=== PATIENT | male | born 1955 | race Caucasian/White ===

== ENCOUNTER → 2019-08-17 11:04 | Outpatient (CLI) | payer MEDICARE, OTHER, SELFPAY ==
[2019-08-17 11:57] LABS: Hematocrit 38.7 % (40-54); Hemoglobin 13.1 g/dL (13.0-16.5); Mean Corp Hgb Conc 33.9 g/dL (32-36); Mean Corpuscular Hgb 31.2 pg (27.0-32.0); Mean Corpuscular Volume 92.1 fL (80-94); Mean Platelet Vol. 8.9 fl (6.2-12.0); Platelet Count 371 K/mm3 (150-450); RBC Distribution Width CV 14.3 % (11.6-14.6); RBC Distribution Width SD 45.8 fl (35.1-43.9); White Blood Count 8.4 K/mm3 (4.4-11.0)
[2019-08-17 12:07] LABS: Anion Gap 5 (5-15); BUN 16 mg/dL (7-18); Calcium,Total 9.7 mg/dL (8.5-10.1); Chloride 103 mmol/L (98-107); Creatinine, Serum 0.89 mg/dL (0.70-1.30); EST Glomerular Filtration Rate 91 mL/min (>60); Est Glom Filt Rate - Afr Amer 110 mL/min (>60); Glucose 91 mg/dL (74-106); Potassium 4.4 mmol/L (3.5-5.1); Sodium Level 137 mmol/L (136-145)
== END ==
PROVIDERS: PCP Family Medicine; Referring Provider Physician Assistant; Visit Provider Physician Assistant
DX: Z01.818 Encounter for other preprocedural examination (principal)
CPT/HCPCS: 36415; 80048; 85027

== ENCOUNTER → 2022-07-08 | Outpatient (CLI) | payer MEDICARE, OTHER, SELFPAY ==
[2022-07-08 13:22] LABS: Free T3 4.2 pg/mL (2.18-3.98); T4 Free Direct 1.14 ng/dL (0.76-1.46); Thyroid Stim Hormone (TSH) < 0.01 uIU/mL (0.358-3.74)
[2022-07-10 07:08] LABS: Thyroid Stim Immunoglob 6.91 IU/L (0.00-0.55)
[2022-07-10 12:51] LABS: Thyroid Peroxidase AB 533 IU/mL (0-34)
== END | disposition home or self-care (01) ==
LOC: BIMLAB 09:57
PROVIDERS: PCP Physician Assistant; Referring Provider Internal Medicine Endocrinology, Diabetes & Metabolism; Visit Provider Internal Medicine Endocrinology, Diabetes & Metabolism
DX: E05.90 Thyrotoxicosis, unspecified without thyrotoxic crisis or storm (principal)
CPT/HCPCS: 36415; 84439; 84443; 84445; 84481; 86376

== ENCOUNTER → 2022-07-27 | Outpatient (CLI) | payer MEDICARE, OTHER, SELFPAY ==
[2022-07-27 16:19] LABS: Free T3 3.8 pg/mL (2.18-3.98); T4 Free Direct 1.18 ng/dL (0.76-1.46); Thyroid Stim Hormone (TSH) < 0.01 uIU/mL (0.358-3.74)
== END | disposition home or self-care (01) ==
LOC: BIMLAB 13:47
PROVIDERS: PCP Physician Assistant; Referring Provider Nurse Practitioner Family; Visit Provider Nurse Practitioner Family
DX: E05.90 Thyrotoxicosis, unspecified without thyrotoxic crisis or storm (principal)
CPT/HCPCS: 36415; 84439; 84443; 84481

== ENCOUNTER → 2022-09-01 | Outpatient (CLI) | payer MEDICARE, OTHER, SELFPAY ==
[2022-09-01 12:32] LABS: Free T3 2.8 pg/mL (2.18-3.98); T4 Free Direct 0.73 ng/dL (0.76-1.46); Thyroid Stim Hormone (TSH) 0.02 uIU/mL (0.358-3.74)
== END | disposition home or self-care (01) ==
LOC: BIMLAB 08:57
PROVIDERS: PCP Physician Assistant; Referring Provider Internal Medicine Endocrinology, Diabetes & Metabolism; Visit Provider Internal Medicine Endocrinology, Diabetes & Metabolism
DX: E05.90 Thyrotoxicosis, unspecified without thyrotoxic crisis or storm (principal)
CPT/HCPCS: 36415; 84439; 84443; 84481

== ENCOUNTER 2022-11-11 14:37 | Emergency (ER) | payer MEDICARE, OTHER, SELFPAY ==
[2022-11-11 14:37] VITALS: BP 162/108; PULSE 98; RESP 16; TEMP 36.8; O2SAT 98; BMI 25.9
--- NOTE | 2022-11-11 15:05 | EKG12_ITS ---
Test Reason : RHYTHM CHANGE Blood Pressure : / mmHG Vent. Rate : 082 BPM Atrial Rate : 286 BPM P-R Int : 000 ms QRS Dur : 088 ms QT Int : 372 ms P-R-T Axes : 000 042 -04 degrees QTc Int : 434 ms Atrial flutter with variable A-V block Nonspecific ST and T wave abnormality Abnormal ECG Confirmed by ZACH BUNDY, VANCE ([id number]), photography editor FRANKIE MENDOZA ([id number]) on 11/12/2022 9:11:18 AM Referred By: Confirmed By:VANCE SERRANO MD
--- NOTE | 2022-11-11 15:07 | EDS_ITS ---
HPI History of Present Illness Chief Complaint: Palpitations Detail of Chief Complaint: Atrial flutter Informant: patient Narrative Narrative: Patient presents secondary to new onset atrial flutter. Patient was scheduled to have knee surgery with Dr. Wan on November 20. He was at the hospital today for preop EKG which revealed atrial flutter. He saw his primary care provider this afternoon and was noted to be in atrial flutter with a ventricular rate of 113. He was sent back to the hospital for further evaluation. Patient denies any symptoms. [facility] Medical History Mixed hyperlipidemia Osteoarthritis Thyrotoxicosis Home Medications lovastatin 20 mg tablet 20 mg PO DAILY CHOLESTEROL 05/21/22 [History Last Taken 11/10/22] multivitamin (Daily Multi-Vitamin tablet) 1 tab PO DAILY 05/21/22 [History Last Taken 11/10/22] pyridoxine (vitamin B6) 100 mg tablet 100 mg PO DAILY 05/21/22 [History Last Taken 11/10/22] zinc acetate 50 mg (zinc) capsule 50 mg PO DAILY 05/21/22 [History Last Taken 11/10/22] methimazole 10 mg tablet 10 mg PO SUTUWETHSA 11/11/22 [History Last Taken 11/10/22] methimazole 10 mg tablet 20 mg PO MOFR 11/11/22 [History Last Taken 11/09/22] rivaroxaban 15 mg (42)-20 mg (9) tablets in a starter pack (Xarelto DVT-PE Treat ment 30-Day Starter) See Rx Instructions PO .COMPLEX #51 tabs 11/11/22 [Rx Last Taken Unknown] Allergy/AdvReac Type Severity Reaction Status Date / Time No Known Allergies Allergy Verified 11/11/22 14:39 Surgical History Hx of arthroscopy of shoulder Previous back surgery Social History Smoking Status: Never smoker Smokeless tobacco user: snuff alcohol intake: current alcohol intake frequency: holidays/special occasions only substance use type: does not use frequency: daily ROS ROS ED Constitutional Constitutional ED: Denies chills or fever(s) Eyes Eyes: Denies change in vision or discharge from eye(s) ENT ENT ED: Denies discharge from eye(s), rhinorrhea or sore throat Cardiovascular Cardiovascular: Denies chest pain or palpitations Respiratory/Chest Respiratory/Chest: Denies cough or dyspnea Gastrointestinal Gastrointestinal: Denies abdominal pain, diarrhea, nausea or vomiting Genitourinary Genitourinary ED: Denies dysuria Musculoskeletal Musculoskeletal: Denies back pain Integumentary Denies Abrasions or rash Neurologic Neurologic: Denies headache(s) or weakness Psychiatric Psychiatric: Denies anxiety or depression Allergic/Immunologic Allergic/Immunologic ED: Denies lip swelling or urticaria EXAM Physical Exam Const Vital Signs: 11/11/22 14:37 11/11/22 15:24 11/11/22 16:44 Temperature 98.2 F Temperature Source Temporal Pulse Rate 98 91 70 Respiratory Rate 16 18 21 H Blood Pressure 162/108 H 147/94 H 141/90 H Blood Pressure Mean 126 111 107 Pulse Ox 98 99 98 Oxygen Delivery Method Room Air Room Air Positive well nourished and well developed General Appearance ED: well developed HEENT Reports normocephalic and head/scalp atraumatic Eyes PERRL and EOMs intact bilaterally Neck supple Chest Wall inspection of chest normal and palpation of chest normal Resp normal respiratory effort and clear to auscultation bilaterally Cardio Rhythm: abnormal rhythm irregularly irregular GI normal to inspection, nondistended, normoactive bowel sounds Palpation: soft Extremity normal to inspection Neuro oriented x3 and no sensory deficits noted Sensorium / Orientation: alert Motor Exam: strength 5/5 throughout Psych mental status grossly normal Skin no rashes or lesions noted MDM MDM MDM Narrative Medical decision making narrative: Patient had outpatient labs this morning. CBC revealed normal white count 5.6 with a hemoglobin of 14.2. Platelet count is 199,000. Chemistry studies reveal normal renal function. Glucose is 114. Potassium normal at 4.5. His TSH was 4.04, free T3 is 2.6, free T4 direct is 0.74. 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 Repeat EKG obtained along with a chest x-ray. Coags obtained along with a troponin. Patient given a dose of Lopressor as well as a dose of Lovenox. Lab Data Attestation: I reviewed the patient's lab results. Labs: Laboratory Results - last 24 hr 11/11/22 11/11/22 15:43 15:43 PT 13.0 INR 1.0 APTT 27.8 Troponin I High Sens 5 Radiography Diagnostic Testing: Clinical Impression(s) from Imaging Studies Chest X-Ray 11/11/22 15:58 IMPRESSION: No radiographic evidence of acute cardiopulmonary disease. Electronically Signed: Bony Baca MD at 16:21 EDT , EKG Initial EKG: Attestation: I personally reviewed and interpreted this EKG as follows: Interpretation: Atrial Flutter (Atrial flutter 82 bpm. No acute ischem ia.) Treatment and Re-Evaluation :: Labs from earlier today are reviewed. I added a troponin which returns normal as well as coags which are unremarkable. After 5 mg of IV Lopressor patient's heart rate is in the 60s and blood pressures in the 140s over 80s. I spoke Dr. Mack, on-call for cardiology. At the time of our discussion his home med list stated that he was on atenolol 50 mg daily. After speaking with him he states that his doctor actually took him off of that just recently. Patient is to go back on atenolol at 50 mg a day and we will start him on Xarelto. He will follow-up with Dr. Mack in the office for further work-up and evaluation. Discharge Plan Triage Chief Complaint: Palpitations ED Provider: Janina Long Dx/Rx/DC Orders Clinical Impression: Atrial flutter Instructions: ED Atrial Flutter Prescriptions: New Xarelto DVT-PE Treat 30d Start 15 mg (42)- 20 mg (9) tablets,dose pack See Rx Instructions .ROUTE .COMPLEX Qty: 51 0RF Rx Instructions: take one-15 mg tablet twice daily for 21 days, then one-20 mg tablet once daily; must take with meal/food No Action lovastatin 20 mg tablet 20 mg PO DAILY zinc acetate 50 mg (zinc) capsule 50 mg PO DAILY pyridoxine (vitamin B6) 100 mg tablet 100 mg PO DAILY multivitamin [Daily Multi-Vitamin] Tablet 1 tab PO DAILY methimazole 10 mg tablet 20 mg PO MOFR Label Comments: TAKE 1 TABLET BY MOUTH DAILY. TAKE 2 TABLETS BY MOUTH ON WEDNESDAY, WEDNESDAY, AND WEDNESDAY FOR 30 DAYS methimazole 10 mg tablet 10 mg PO SUTUWETHSA Rx Instructions: 10 mg orally one daily, 2 daily M and_F; Primary Care Provider: Cesar Carr Referrals: Neo Mack MD [Med Staff - Active Staff] - 1-2 Weeks Cesar Carr PA [Primary Care Provider] - Activity Restrictions/Additional Instructions: As discussed, please go back on your atenolol daily. Please call Dr. Blas's office tomorrow for follow-up appointment. Disposition Disposition: Home, Self Care
[2022-11-11 15:24] VITALS: BP 147/94; PULSE 91; RESP 18; O2SAT 99
--- NOTE | 2022-11-11 15:58 | RAD_ITS ---
EXAM: XR CHEST, 1 VIEW CLINICAL INDICATION: palpitations TECHNIQUE: Frontal view of the chest. COMPARISON: No relevant prior studies available. FINDINGS: LUNGS AND PLEURAL SPACES: Unremarkable. No consolidation or edema. No pneumothorax. No effusion. HEART: Unremarkable. Cardiac silhouette not enlarged. MEDIASTINUM: Central airways and mediastinal contour are unremarkable. BONES/JOINTS: Unremarkable. SOFT TISSUES: Unremarkable. RAD/Chest 1 View (Portable) IMPRESSION: No radiographic evidence of acute cardiopulmonary disease. Electronically Signed: Bony Baca MD at 16:21 EDT ,
[2022-11-11] MEDS: Metoprolol Tartrate 5 MG/5 ML Vial IV (16:01)
[2022-11-11] MEDS: Enoxaparin 80 MG/0.8 ML Syringe SC (16:01)
[2022-11-11 16:20] LABS: Troponin-I HS 5 pg/mL (3.0-78.0)
[2022-11-11 16:21] LABS: Partial Thromboplast Time 27.8 Seconds (24.1-36.2)
[2022-11-11 16:44] VITALS: BP 141/90; PULSE 70; RESP 21; O2SAT 98
[2022-11-11 16:59] VITALS: BP 141/60; PULSE 84; RESP 16; O2SAT 98
== END 2022-11-11 17:00 | disposition home or self-care (01) ==
PROVIDERS: Emergency Provider Emergency Medicine; PCP Physician Assistant; Visit Provider Emergency Medicine
DX: Z01.818 Encounter for other preprocedural examination (principal); I48.92 Unspecified atrial flutter; E78.2 Mixed hyperlipidemia; F17.290 Nicotine dependence, other tobacco product, uncomplicated; E05.00 Thyrotoxicosis with diffuse goiter without thyrotoxic crisis or storm; Z01.810 Encounter for preprocedural cardiovascular examination
CPT/HCPCS: 36415; 71045; 80048; 84439; 84443; 84481; 84484; 85027; 85610; 85730; 93005; 96372; 96374; 99285; A4216

== ENCOUNTER → 2022-11-11 | Outpatient (CLI) | payer MEDICARE, OTHER, SELFPAY ==
--- NOTE | 2022-11-11 09:28 | EKG12_ITS ---
Test Reason : PREOP Blood Pressure : / mmHG Vent. Rate : 093 BPM Atrial Rate : 279 BPM P-R Int : 000 ms QRS Dur : 092 ms QT Int : 370 ms P-R-T Axes : 000 050 046 degrees QTc Int : 460 ms Atrial flutter with variable A-V block Nonspecific ST abnormality Abnormal ECG Confirmed by ZACH BUNDY, VANCE ([id number]), subeditor FRANKIE MENDOZA ([id number]) on 11/12/2022 9:03:50 AM Referred By: Matthieu Delcdi Confirmed By:VANCE SERRANO MD
[2022-11-11 10:33] LABS: Hematocrit 41.3 % (40-54); Hemoglobin 14.2 g/dL (13.0-16.5); Mean Corp Hgb Conc 34.4 g/dL (32-36); Mean Corpuscular Hgb 35.7 pg (27.0-32.0); Mean Corpuscular Volume 103.8 fL (80-94); Mean Platelet Vol. 9.6 fl (6.2-12.0); Platelet Count 199 K/mm3 (150-450); RBC Distribution Width CV 15.1 % (11.6-14.6); RBC Distribution Width SD 57.1 fl (35.1-43.9); Red Blood Count 3.98 M/mm3 (4.6-6.2); White Blood Count 5.6 K/mm3 (4.4-11.0)
[2022-11-11 10:50] LABS: Anion Gap 6 (5-15); BUN 15 mg/dL (7-18); BUN/Creat Ratio 16.4 RATIO (10-20); Calcium,Total 9.3 mg/dL (8.5-10.1); Chloride 104 mmol/L (98-107); Creatinine, Serum 0.91 mg/dL (0.70-1.30); EST Glomerular Filtration Rate 87 mL/min (>60); Est Glom Filt Rate - Afr Amer 106 mL/min (>60); Glucose 114 mg/dL (74-106); Potassium 4.5 mmol/L (3.5-5.1); Sodium Level 138 mmol/L (136-145)
[2022-11-11 11:05] LABS: Free T3 2.6 pg/mL (2.18-3.98); T4 Free Direct 0.74 ng/dL (0.76-1.46); Thyroid Stim Hormone (TSH) 4.04 uIU/mL (0.358-3.74)
== END | disposition home or self-care (01) ==
PROVIDERS: Internal Medicine Endocrinology, Diabetes & Metabolism; PCP Physician Assistant; Referring Provider Physician Assistant; Visit Provider Physician Assistant
DX: Z01.818 Encounter for other preprocedural examination (principal); E05.00 Thyrotoxicosis with diffuse goiter without thyrotoxic crisis or storm; Z01.810 Encounter for preprocedural cardiovascular examination
CPT/HCPCS: 36415; 80048; 84439; 84443; 84481; 85027; 93005

== ENCOUNTER → 2022-12-10 | Outpatient (CLI) | payer MEDICARE, OTHER, SELFPAY ==
--- NOTE | 2022-12-10 08:51 | ECHOD_ITS ---
Reason For Study: AFIB Procedure This was a 2D Doppler, Color Flow transthoracic echocardiogram. Exam performed in department. Left Ventricle Normal LV size. Left ventricular systolic function is normal. The estimated ejection fraction is 55 %. No regional wall motion abnormalities noted. Right Ventricle Normal RV size. Normal systolic function. Atria The left atrium is moderately enlarged. The right atrium is moderately enlarged. Mitral Valve Normal mitral valve. Tricuspid Valve Normal tricuspid valve. Mild (1+) tricuspid valve insufficiency. Pulmonary artery systolic pressure is 29 mmHg. Aortic Valve Normal aortic valve. Trisinus/trileaflet aortic valve. Pulmonic Valve Normal pulmonic valve. Great Vessels Normal aortic root. The pulmonary artery is normal size. Normal inferior vena cava. Pericardium/Pleural No pericardial effusion. MMode/2D Measurements & Calculations LVIDd: 4.7 cm IVSd: 0.80 cm Ao root diam: 3.7 cm LVIDs: 3.0 cm LVPWd: 1.0 cm RVDd: 4.5 cm FS: 36.2 % LAV(MOD-bp): 87.9 ml LVAd ap4: 30.1 cm2 SV(MOD-sp4): 53.8 ml LAV(MOD-bp) Indexed: 44.0 ml/m2 LVLd ap4: 7.7 cm LAV(MOD-sp2): 75.4 ml EDV(MOD-sp4): 95.6 ml LAV(MOD-sp4): 81.7 ml EDV(sp4-el): 100.5 ml LVAs ap4: 18.3 cm2 LVLs ap4: 6.6 cm ESV(MOD-sp4): 41.8 ml ESV(sp4-el): 43.1 ml EF(MOD-sp4): 56.3 % EF(sp4-el): 57.1 % SV(sp4-el): 57.4 ml LA A4 area: 26.7 cm2 LA dimension(2D): 4.1 cm RA A4 area: 25.8 cm2 Time Measurements MV dec time: 0.14 sec Doppler Measurements & Calculations MV E max juan manuel: 96.7 cm/sec Lat Peak E' Juan Manuel: 12.0 cm/sec Med Peak E' Juan Manuel: 8.5 cm/sec MV A max juan manuel: 60.3 cm/sec E/E' lat: 8.1 E/E' med: 11.4 MV E/A: 1.6 MV V2 max: 103.4 cm/sec Ao V2 max: 99.3 cm/sec MV max P.3 mmHg MV dec slope: 686.2 cm/sec2 Ao max P.9 mmHg MV V2 mean: 65.6 cm/sec Ao V2 mean: 69.1 cm/sec MV mean P.0 mmHg Ao mean P.2 mmHg MV V2 VTI: 30.9 cm Ao V2 VTI: 24.6 cm AV (velocity ratio): 0.77 LV V1 max: 78.2 cm/sec PA V2 max: 94.7 cm/sec TR max juan manuel: 248.1 cm/sec LV V1 max P.4 mmHg PA V2 mean: 64.2 cm/sec TR max P.6 mmHg LV V1 mean P.5 mmHg LV V1 mean: 56.9 cm/sec LV V1 VTI: 19.0 cm ECHO/Echo Complete Interpretation Summary Normal LV size. Left ventricular systolic function is normal. The estimated ejection fraction is 55 %. The left atrium is moderately enlarged. The right atrium is moderately enlarged. Pulmonary artery systolic pressure is 29 mmHg. Ordering Physician: Neo Mack Referring Physician: Neo Mack Performed By: Araceli Castro and Student
== END | disposition home or self-care (01) ==
LOC: CVS 08:50
PROVIDERS: PCP Physician Assistant; Referring Provider Internal Medicine Cardiovascular Disease; Visit Provider Internal Medicine Cardiovascular Disease
DX: Z01.810 Encounter for preprocedural cardiovascular examination (principal)
CPT/HCPCS: 93306

== ENCOUNTER → 2022-12-25 | Outpatient (CLI) | payer MEDICARE, OTHER, SELFPAY ==
[2022-12-25 12:56] LABS: Free T3 2.6 pg/mL (2.18-3.98); T4 Free Direct 0.81 ng/dL (0.76-1.46); Thyroid Stim Hormone (TSH) 4.22 uIU/mL (0.358-3.74)
== END | disposition home or self-care (01) ==
LOC: BIMLAB 09:45
PROVIDERS: PCP Physician Assistant; Referring Provider Internal Medicine Endocrinology, Diabetes & Metabolism; Visit Provider Internal Medicine Endocrinology, Diabetes & Metabolism
DX: E05.00 Thyrotoxicosis with diffuse goiter without thyrotoxic crisis or storm (principal)
CPT/HCPCS: 36415; 84439; 84443; 84481

== ENCOUNTER → 2022-12-29 | Outpatient (CLI) | payer MEDICARE, OTHER, SELFPAY ==
[2022-12-29 10:55] LABS: Mean Corp Hgb Conc 35.7 g/dL (32-36); Mean Corpuscular Hgb 36.5 pg (27.0-32.0); Mean Corpuscular Volume 102.2 fL (80-94); Mean Platelet Vol. 9.4 fl (6.2-12.0); Platelet Count 207 K/mm3 (150-450); RBC Distribution Width CV 14.9 % (11.6-14.6); RBC Distribution Width SD 54.3 fl (35.1-43.9); Red Blood Count 4.11 M/mm3 (4.6-6.2); White Blood Count 6.6 K/mm3 (4.4-11.0)
[2022-12-29 11:51] LABS: Anion Gap 4 (5-15); BUN 14 mg/dL (7-18); BUN/Creat Ratio 14.1 RATIO (10-20); Calcium,Total 9.2 mg/dL (8.5-10.1); Chloride 109 mmol/L (98-107); EST Glomerular Filtration Rate 79 mL/min (>60); Est Glom Filt Rate - Afr Amer 96 mL/min (>60); Glucose 115 mg/dL (74-106); Potassium 4.1 mmol/L (3.5-5.1); Sodium Level 139 mmol/L (136-145)
[2022-12-29 12:00] LABS: Free T3 2.6 pg/mL (2.18-3.98); T4 Free Direct 0.83 ng/dL (0.76-1.46); Thyroid Stim Hormone (TSH) 3.57 uIU/mL (0.358-3.74)
== END | disposition home or self-care (01) ==
LOC: LAB 10:16
PROVIDERS: Internal Medicine Endocrinology, Diabetes & Metabolism; PCP Physician Assistant; Referring Provider Physician Assistant Surgical; Visit Provider Physician Assistant Surgical
DX: Z01.818 Encounter for other preprocedural examination (principal); E05.00 Thyrotoxicosis with diffuse goiter without thyrotoxic crisis or storm; I10 Essential (primary) hypertension
CPT/HCPCS: 36415; 80048; 84439; 84443; 84481; 85027

== ENCOUNTER → 2023-05-25 | Outpatient (CLI) | payer MEDICARE, OTHER, SELFPAY ==
[2023-05-25 12:54] LABS: Free T3 2.3 pg/mL (2.18-3.98); T4 Free Direct 0.82 ng/dL (0.76-1.46); Thyroid Stim Hormone (TSH) 7.39 uIU/mL (0.358-3.74)
== END | disposition home or self-care (01) ==
LOC: BIMLAB 10:25
PROVIDERS: PCP Physician Assistant; Referring Provider Internal Medicine Endocrinology, Diabetes & Metabolism; Visit Provider Internal Medicine Endocrinology, Diabetes & Metabolism
DX: E05.00 Thyrotoxicosis with diffuse goiter without thyrotoxic crisis or storm (principal)
CPT/HCPCS: 36415; 84439; 84443; 84481

== ENCOUNTER → 2023-06-28 | Outpatient (CLI) | payer MEDICARE, OTHER, SELFPAY ==
--- OUTSIDE RECORDS SUMMARY | 2023-06-28 10:12 | XMS RPT_ITS | CCD ---
Author Name Unknown Address [address] [place] [address] Organization [facility] Care Team Providers Care Java Enterprise Architect Name Role Phone SHASHA SOTO MD Admitting Unavailable SHASHA SOTO MD Attending Unavailable SHASHA SOTO MD Primary Care Unavailable MONIE LEISE Consulting Unavailable PROVIDER, UNKNOWN Consulting Unavailable PROVIDER, UNKNOWN Consulting Unavailable PROVIDER, UNKNOWN Consulting Unavailable Problems Problem Classification Problem Date Documented Da te Episodic/Chronic Cardiac dysrhythmias (2 sources) Typical atrial flutter; Translations: [Typical atrial flutter] Onset: 03-08-2023 Chronic Results Test Name Value Interpretation Reference Range Facil ity Encounters Encounter Date Encounter Type Care Provider Facility Start: 03-08-2023 ambulatory Facility:[facility] Start: 06-11-2022 End: 06-11-2022 ambulatory SHASHA Vance [facility] Payers Date Payer Category Payer Medicare [id number] 2018 Unknown [id number] 1955 Unknown [id number] 1955 Unknown [id number] Summary Purpose Family History No Family History Records FoundNo Family History Records FoundNo Family History Records FoundNo Family History Records Found Advance Directives No Advanced Directives Records FoundNo Advanced Directives Records FoundNo Advanced Directives Records FoundNo Advanced Directives Records Found Additional Source Comments (unrecognized sect ion and content) No Status Records FoundNo Status Records FoundNo Status Records FoundNo Status Records Found INFORMATION SOURCE (unrecogn ized section and content) DATE CREATED AUTHOR AUTHOR'S ORGANIZ ATION 06/22/2022 [facility] DATE CREATED AUTHOR AUTHOR'S ORGANIZ ATION 03/15/2023 [facility] DATE CREATED AUTHOR AUTHOR'S ORGANIZ ATION 04/18/2023 [facility] FOR RECORDS PERTAINING TO PATIENTS WHO ARE OR HAVE BEEN ENROLLED IN A CHEMICAL DEPENDENCY/SUBSTANCEABUSE PROGRAM, SOME INFORMATION MAY BE OMITTED. This clinical summary was aggregated from multiple sources. Caution should be exercised in using it in the provision of clinical care. This summary normalizes information from multiple sources, and as a consequence, information in this document may materially change the coding, format and clinical context of patient data. In addition, data may be omitted in some cases. CLINICAL DECISIONS SHOULD BE BASED ON THE PRIMARY CLINICAL RECORDS. [employer] provides no warranty or guarantee of the accuracy or completeness of information in this document.
[2023-06-28 13:36] LABS: T4 Free Direct 0.92 ng/dL (0.76-1.46); Thyroid Stim Hormone (TSH) 3.93 uIU/mL (0.358-3.74)
== END | disposition home or self-care (01) ==
LOC: BIMLAB 09:48
PROVIDERS: PCP Physician Assistant; Referring Provider Internal Medicine Endocrinology, Diabetes & Metabolism; Visit Provider Internal Medicine Endocrinology, Diabetes & Metabolism
DX: E05.00 Thyrotoxicosis with diffuse goiter without thyrotoxic crisis or storm (principal)
CPT/HCPCS: 36415; 84439; 84443

== ENCOUNTER → 2023-11-25 | Outpatient (CLI) | payer MEDICARE, OTHER, SELFPAY | END | disposition home or self-care (01) | LOC: BIMLAB 09:41 | PROVIDERS: PCP Physician Assistant; Referring Provider Internal Medicine Endocrinology, Diabetes & Metabolism; Visit Provider Internal Medicine Endocrinology, Diabetes & Metabolism | DX: Z00.00 Encounter for general adult medical examination without abnormal findings (principal) ==

== ENCOUNTER → 2023-12-21 | Outpatient (CLI) | payer MEDICARE, OTHER, SELFPAY ==
[2023-12-21 12:53] LABS: Free T3 2.6 pg/mL (2.18-3.98); T4 Free Direct 1.35 ng/dL (0.76-1.46); Thyroid Stim Hormone (TSH) 1.62 uIU/mL (0.358-3.74)
== END | disposition home or self-care (01) ==
LOC: BIMLAB 09:29
PROVIDERS: PCP Physician Assistant; Referring Provider Nurse Practitioner Family; Visit Provider Nurse Practitioner Family
DX: E05.00 Thyrotoxicosis with diffuse goiter without thyrotoxic crisis or storm (principal)
CPT/HCPCS: 36415; 84439; 84443; 84481

== ENCOUNTER → 2024-02-11 | Outpatient (CLI) | payer MEDICARE, OTHER, SELFPAY ==
[2024-02-11 13:15] LABS: ALB/GLOB Ratio 0.8 RATIO (0.9-2.4); AST(SGOT) 18 U/L (15-37); Alanine Aminotransfer ALT/SGPT 18 U/L (16-61); Albumin, Serum 3.1 g/dL (3.2-5.0); Alkaline Phosphatase 93 U/L (45-117); Anion Gap 9 (5-15); BUN 10 mg/dL (7-18); BUN/Creat Ratio 12.7 RATIO (10-20); Calcium,Total 9.4 mg/dL (8.5-10.1); Chloride 100 mmol/L (98-107); Cholesterol 155 mg/dL (200); Creatinine, Serum 0.79 mg/dL (0.70-1.30); EST Glomerular Filtration Rate 103 mL/min (>60); Est Glom Filt Rate - Afr Amer 125 mL/min (>60); Glucose 104 mg/dL (74-106); High Density Lipoprotein 50 mg/dL; Potassium 4.5 mmol/L (3.5-5.1); Protein, Total 7.1 g/dL (6.4-8.2); Sodium Level 135 mmol/L (136-145); Triglycerides 121 mg/dL; Very Low Density Lipoprotein 24 mg/dL (5-40)
[2024-02-11 14:01] LABS: Urine Sodium 72 mmol/L (Not Establ.)
[2024-02-11 14:13] LABS: Osmolality, Serum 283 mOsm/KG (280-301); Osmolality, Urine 453 mOsm/KG
== END | disposition home or self-care (01) ==
LOC: BIMLAB 09:23
PROVIDERS: PCP Physician Assistant; Referring Provider Internal Medicine Endocrinology, Diabetes & Metabolism; Visit Provider Internal Medicine Endocrinology, Diabetes & Metabolism
DX: E05.90 Thyrotoxicosis, unspecified without thyrotoxic crisis or storm (principal); E78.2 Mixed hyperlipidemia; I10 Essential (primary) hypertension; E87.1 Hypo-osmolality and hyponatremia
CPT/HCPCS: 36415; 80053; 80061; 82533; 83930; 83935; 84300; 84443

== ENCOUNTER → 2024-02-15 | Outpatient (CLI) | payer MEDICARE, OTHER, SELFPAY | END | disposition home or self-care (01) | LOC: PSN 13:21 | PROVIDERS: PCP Physician Assistant; Referring Provider Nurse Practitioner Family; Visit Provider Nurse Practitioner Family | DX: I48.3 Typical atrial flutter (principal) | CPT/HCPCS: 93225; 93226 ==

== ENCOUNTER → 2024-06-13 | Outpatient (CLI) | payer MEDICARE, OTHER, SELFPAY ==
--- NOTE | 2024-06-13 12:19 | CT_ITS ---
INDICATION: ABD DISCOMFORT, ABD MASS, INRA ABD NEOPLASM SUSPECTED EXAMINATION: CT ABDOMEN WITH IV CONTRAST CT Abdomen W/ Contrast Injection TECHNIQUE: Helically acquired images were obtained of the abdomen following IV contrast. The protocol utilizes one or more of the following dose reduction techniques: automated exposure control, adjustment of mA and/or kV according to patient size,and/or use of iterative reconstruction technique. IV Contrast dosage and agent: Oral contrast: None. RADIATION DOSAGE (If Supplied By Facility): CTDIvol = ( 11.34 ) mGy, DLP = ( 754.62 ) mGycm COMPARISON: FINDINGS: LOWER CHEST: Lung bases are clear. No cardiomegaly or pericardial effusion. LIVER: Homogeneous. No focal mass. GALLBLADDER AND BILIARY TREE: No calcified gallstones. No gallbladder distension or wall edema. No intra- or extrahepatic biliary ductal dilation. PANCREAS: No focal cystic or solid mass. SPLEEN: Normal size without focal cystic or solid mass. ADRENAL GLANDS: No nodules. KIDNEYS AND URETERS: Normal renal size and position. No hydronephrosis. PERITONEUM: No ascites or free air. No other fluid collection. BOWEL: No evidence of acute appendicitis. No stomach or bowel distension. No focal inflammatory change.Colonic fecal retention. LYMPH NODES: No enlarged mesenteric or retroperitoneal lymph nodes. VESSELS: Aorta is non-dilated. ABDOMINAL WALL: No discrete abdominal wall hernia. BONES: No lytic or blastic abnormality. CT/Abdomen WITH IV Contrast IMPRESSION: Colonic fecal retention. Electronically Signed: Chago Roldan DO at 14:28 EST ,
[2024-06-13 12:56] LABS: CREATININE FINGERSTICK < 1.0 mg/dL (0.70-1.30); EGFR FINGERSTICK > 60.0000 mL/min (>60)
== END | disposition home or self-care (01) ==
LOC: CT 12:18
PROVIDERS: PCP Physician Assistant; Referring Provider Physician Assistant; Visit Provider Physician Assistant
DX: R10.84 Generalized abdominal pain (principal)
CPT/HCPCS: 74160; Q9967

== ENCOUNTER 2024-07-28 08:13 | Day surgery (SDC) | payer MEDICARE, OTHER, SELFPAY ==
--- NOTE | 2024-07-25 16:59 | PAT.ANESEVAL ---
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 When Was Last Pacemaker Check QUESTION #4 FULL TEXT: You/Your Family Experience fever (hyperthermia) with Anesthesia Last Oral Intake Last Oral intake: Last Oral Intake NPO since Meds taken in AM with sips of water? Meds patient instructed to take am of surgery PONV PONV - jet operator: PONV - jet operator Female No 07/25/24 16:02 HX of Motion Sickness No 07/25/24 16:02 HX of N/V After Surgery Yes 07/25/24 16:02 Non-Smoker No 07/25/24 16:02 Duration of Surgery greater No 07/25/24 16:02 than 60 minutes Number of Risk Factors 1 07/25/24 16:02 PONV Score Low Risk 07/25/24 16:02 Height & Weight Height & Weight: Anesthesia: Height & Weight Height 5 ft 10 in 07/05/24 09:37 Respiratory Assessment Respiratory Assessment - jet operator: Respiratory Tract Infection Hx - jet operator Hx Respiratory Tract Infection No 07/25/24 16:02 STOP Sleep Apnea STOP Sleep Apnea - jet operator: STOP Sleep Apnea - jet operator Hx Hypertension Yes: CONTROLLED WITH MEDS 07/25/24 16:02 Hx Sleep Apnea No 07/25/24 16:02 CPAP BIPAP Do you snore loudly (louder Yes 07/25/24 16:02 than talking or can be heard Do you often feel tired/ No 07/25/24 16:02 fatigued/ sleepy during daytime? Has anyone observed you stop No 07/25/24 16:02 breathing during sleep? STOP Results Positive 07/25/24 16:02 QUESTION #5 FULL TEXT : Do you snore loudly (louder than talking or can be heard through closed doors)? 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 Specify any problems Hx of Preganancy in last 3 N/A 07/25/24 16:02 Months Nurse Filling Out Transfusion [id number] 07/25/24 16:02 & Questions: Date: 07/25/24 07/25/24 16:02 Time: 16:07/25/24 16:02 Patient unable to answer at this time (ie. confused, unrespo /Reproduction History /Reproductive History - jet operator: /Reproductive Hx- jet operator Hx Now Gestational Age (in weeks): EDC: Hx Hx Para Hx Section SAB PFSH Medical History (Updated 07/25/24 @ 16:08 by Clark Santiago) Wears glasses Wears dentures History of echocardiogram Cardiology follow-up encounter Hyponatremia Peripheral neuropathy Essential hypertension Hyperthyroidism Atrial flutter Osteoarthritis Mixed hyperlipidemia Thyrotoxicosis Home Medications ?Medication ?Instructions ?Recorded ?Last Taken ?Type lovastatin 20 mg tablet 20 mg PO DAILY CHOLESTEROL 05/21/22 11/10/22 History multivitamin (Daily Multi-Vitamin 1 tab PO DAILY 05/21/22 11/10/22 History tablet) pyridoxine (vitamin B6) 100 mg 100 mg PO DAILY 05/21/22 11/10/22 History tablet zinc acetate 50 mg (zinc) capsule 50 mg PO DAILY 05/21/22 11/10/22 History metoprolol succinate 50 mg 50 mg PO QDAY #90 tabs 01/17/24 Unknown Rx tablet,extended release 24 hr rivaroxaban 20 mg tablet (Xarelto) 20 mg PO DAILY #90 tabs 05/10/24 07/24/24 Rx methimazole 5 mg tablet 5 mg PO MOTUWETHFRSA #90 tabs 06/23/24 Unknown Rx Allergy/AdvReac Type Severity Reaction Status Date / Time No Known Allergies Allergy Verified 07/25/24 16:00 Surgical History (Updated 07/25/24 @ 16:08 by Clark Santiago) History of hernia surgery History of radiofrequency ablation procedure for cardiac arrhythmia (12/06/23) History of knee surgery Previous back surgery Hx of arthroscopy of shoulder Social History Smoking Status: Never smoker Smokeless tobacco user: snuff alcohol intake: current alcohol intake frequency: holidays/special occasions only substance use type: does not use caffeine: Yes Type: coffee Number of servings: 3 frequency: daily Audit: Pertinent Findings Pertinent Findings EKG Perinent findings: January 17, 2024. Normal sinus rhythm Echo (EF%) pertinent findings: December 10, 2022. Ejection fraction 55%. PA systolic pressure is 29 mmHg. No aortic stenosis noted. Consult pertinent findings: January 17, 2024. Rebel GARZA. 1. Atrial flutter-ablation was done in [facility] 27 November 2023. Latest EKG shows normal sinus rhythm. Continue rate control with metoprolol. Anticoagulation with Xarelto. 2. Hypertension?borderline elevated today. Continue to monitor. Additional pertinent findings: Holter monitor. February 15, 2024. Average heart rate was 92 bpm and normal sinus rhythm. No atrial fibrillation or flutter noted. Diary noted 1 episode of restlessness which correlated with normal sinus rhythm. Recommendation Anesthesia Recommendation Anesthesia recommendation: OPTIMIZED for anesthesia
[2024-07-28] VITALS (7 sets, daily range): BP systolic 87–132; BP diastolic 54–76; PULSE 76–86; RESP 16; TEMP 36.1–37; O2SAT 98–99; BMI 23.5
--- NOTE | 2024-07-28 08:20 | PCM.PRE.AN2 ---
ASA Classification* ASA Classification ASA Classification: 2 Assessment & Plan Anesthesia* Anesthesia Assessment Anesthesia Assessment: Discussed sedation and/or anesthesia options, risks, benefits, and alternatives with patient/parents/legal guardian/POA. Questions invited. The patient/parents/legal guardian/POA seems to understand and agrees to proceed with anesthesia plan. Reviewed the physical assessment, medical history, allergy history and patient home medications list prior to surgery/procedure/anesthetic and documented any changes. Performed airway and anesthesia risk assessments. Anesthesia Type Anesthesia Type: MAC Anesthesia Focused Assessment* Airway Assessment Mouth opens: >3 cm Mallampati Score: II Focused Labs Anesthesia Preop lab: CBC WBC 6.6 K/mm3 (4.4-11.0) 12/29/22 10:12/29/22 RBC 4.11 M/mm3 (4.6-6.2) L 12/29/22 10:12/29/22 Hgb 15.0 g/dL (13.0-16.5) 12/29/22 10:12/29/22 Hct 42.0 % (40-54) 12/29/22 10:12/29/22 Plt Count 207 K/mm3 (150-450) 12/29/22 10:12/29/22 CHEMISTRY Potassium 4.5 mmol/L (3.5-5.1) 02/11/24 09:23 02/11/24 Sodium 135 mmol/L (136-145) L 02/11/24 09:23 02/11/24 BUN 10 mg/dL (7-18) 02/11/24 09:02/11/24 Creatinine 0.79 mg/dL (0.70-1.30) 02/11/24 09:02/11/24 Glucose 104 mg/dL (74-106) 02/11/24 09:02/11/24 TSH 2.980 uIU/mL (0.358-3.740) 02/11/24 09:02/11/24 COAG PT 13.0 SECONDS (11.7-14.9) 11/11/22 15:43 11/11/22 Pre-Assessment Diagnosis/Proposed Procedure Planned Operative Procedure(s): COLONOSCOPY, EGD Anesthesia History 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 When Was Last Pacemaker Check QUESTION #4 FULL TEXT: You/Your Family Experience fever (hyperthermia) with Anesthesia Last Oral Intake Last Oral intake: Last Oral Intake NPO since Meds taken in AM with sips of water? Meds patient instructed to take am of surgery PONV PONV - customer logistics manager: PONV - customer logistics manager Female No 07/25/24 16:02 HX of Motion Sickness No 07/25/24 16:02 HX of N/V After Surgery Yes 07/25/24 16:02 Non-Smoker No 07/25/24 16:02 Duration of Surgery greater No 07/25/24 16:02 than 60 minutes Number of Risk Factors 1 07/25/24 16:02 PONV Score Low Risk 07/25/24 16:02 Height & Weight Height & Weight: Anesthesia: Height & Weight Height 5 ft 10 in 07/05/24 09:37 Respiratory Assessment Respiratory Assessment - customer logistics manager: Respiratory Tract Infection Hx - customer logistics manager Hx Respiratory Tract Infection No 07/25/24 16:02 STOP Sleep Apnea STOP Sleep Apnea - customer logistics manager: STOP Sleep Apnea - customer logistics manager Hx Hypertension Yes: CONTROLLED WITH MEDS 07/25/24 16:02 Hx Sleep Apnea No 07/25/24 16:02 CPAP BIPAP Do you snore loudly (louder Yes 07/25/24 16:02 than talking or can be heard Do you often feel tired/ No 07/25/24 16:02 fatigued/ sleepy during daytime? Has anyone observed you stop No 07/25/24 16:02 breathing during sleep? STOP Results Positive 07/25/24 16:02 QUESTION #5 FULL TEXT : Do you snore loudly (louder than talking or can be heard through closed doors)? Tobacco Use History Tobacco Use History - customer logistics manager: Tobacco Use History - customer logistics manager Tobacco Use Smoking Status Never smoker 07/25/24 16:02 Hx Tobacco Use No 07/25/24 16:02 Years Smoking Packs Smoked per Day Smoking Cessation Date was within the last 15 years Hx Smoking Cessation Date Hx Smoking Cessation Counseling Hematologic Medial History Hematologic Hx - customer logistics manager: Hematologic Medical Hx - documentation liaison Hx of Blood Transfusion No 07/25/24 16:02 Hx of Transfusion in last 3 No 07/25/24 16:02 Months Date of Last Transfusion (if within last 3 months) Ever experience any problems No 07/25/24 16:02 with transfusion(s)? Specify any problems Hx of Preganancy in last 3 N/A 07/25/24 16:02 Months Nurse Filling Out Transfusion [email or web address] 07/25/24 16:02 & Questions: Date: 07/25/24 07/25/24 16:02 Time: 16:07/25/24 16:02 Patient unable to answer at this time (ie. confused, unrespo /Reproduction History /Reproductive History - customer logistics manager: /Reproductive Hx- customer logistics manager Hx Now Gestational Age (in weeks): EDC: Hx Hx Para [facility] Medical History Wears glasses Wears dentures History of echocardiogram Cardiology follow-up encounter Hyponatremia Peripheral neuropathy Essential hypertension Hyperthyroidism Atrial flutter Osteoarthritis Mixed hyperlipidemia Thyrotoxicosis Home Medications ?Medication ?Instructions ?Recorded ?Last Taken ?Type lovastatin 20 mg tablet 20 mg PO DAILY CHOLESTEROL 05/21/22 11/10/22 History multivitamin (Daily Multi-Vitamin 1 tab PO DAILY 05/21/22 11/10/22 History tablet) pyridoxine (vitamin B6) 100 mg 100 mg PO DAILY 05/21/22 11/10/22 History tablet zinc acetate 50 mg (zinc) capsule 50 mg PO DAILY 05/21/22 11/10/22 History metoprolol succinate 50 mg 50 mg PO QDAY #90 tabs 01/17/24 Unknown Rx tablet,extended release 24 hr rivaroxaban 20 mg tablet (Xarelto) 20 mg PO DAILY #90 tabs 05/10/24 07/24/24 Rx methimazole 5 mg tablet 5 mg PO MOTUWETHFRSA #90 tabs 06/23/24 Unknown Rx Allergy/AdvReac Type Severity Reaction Status Date / Time No Known Allergies Allergy Verified 07/25/24 16:00 Surgical History History of hernia surgery History of radiofrequency ablation procedure for cardiac arrhythmia (12/06/23) History of knee surgery Previous back surgery Hx of arthroscopy of shoulder Social History Smoking Status: Never smoker Smokeless tobacco user: snuff alcohol intake: current alcohol intake frequency: holidays/special occasions only substance use type: does not use caffeine: Yes Type: coffee Number of servings: 3 frequency: daily Review of Systems (Anesthesia) ROS Narrative System reviewed and no additional complaints, except as documented.
--- NOTE | 2024-07-28 09:05 | HP.PCM_ITS ---
History and Physical Date of Admission: 07/28/24 Intake Vital Signs 02/11/2408:31 06/27/2507:50 07/05/2508:37 Height 5 ft 10 in 5 ft 10 in 5 ft 10 in Weight: 169 lb BMI 24.2 BP 157/82 H Blood Pressure Location Rt brachial Position Sitting Respiration 18 Intake Visit Reasons: UNINTENTIONAL WEIGHT LOSS Chief Complaint: weight loss Rehabilitation Director Required: No Is patient in pain?: No Allergies No Known Allergies Allergy (Verified 07/05/24 09:38) Medications ?Medication ?Instructions ?Recorded ?Confirmed ?Type lovastatin 20 mg tablet 20 mg PO DAILY CHOLESTEROL 05/21/22 07/05/24 History multivitamin (Daily Multi-Vitamin 1 tab PO DAILY 05/21/22 07/05/24 History tablet) pyridoxine (vitamin B6) 100 mg 100 mg PO DAILY 05/21/22 07/05/24 History tablet zinc acetate 50 mg (zinc) capsule 50 mg PO DAILY 05/21/22 07/05/24 History metoprolol succinate 50 mg 50 mg PO QDAY #90 tabs 01/17/24 07/05/24 Rx tablet,extended release 24 hr rivaroxaban 20 mg tablet (Xarelto) 20 mg PO DAILY #90 tabs 05/10/24 07/05/24 Rx methimazole 5 mg tablet 5 mg PO MOTUWETHFRSA #90 tabs 06/23/24 07/05/24 Rx Have you fallen in the past year?: No PFSH Medical History Hyponatremia Peripheral neuropathy Essential hypertension Hyperthyroidism Atrial flutter Osteoarthritis Mixed hyperlipidemia Thyrotoxicosis Surgical History History of radiofrequency ablation procedure for cardiac arrhythmia (12/06/23) History of knee surgery Previous back surgery Hx of arthroscopy of shoulder Social History Smoking Status: Never smoker Smokeless tobacco user: snuff alcohol intake: current alcohol intake frequency: holidays/special occasions only substance use type: does not use caffeine: Yes Type: coffee Number of servings: 3 frequency: daily HPI HPI HPI: Patient is a 69-year-old male with unintentional weight loss. He reports that since summer he has lost 20 to 30 pounds. He was also dealing with insomnia at the time and says he was not eating well. The patient does describe some mild abdominal pain under his ribs that has gone away. He is not noting any blood in his stool. He has never had a colonoscopy. ROS General General: Yes weight change; No appetite, fatigue, colon cancer, breast cancer or weakness HEENT HEENT: No difficulty swallowing, eye injury, eye surgery, swollen glands or hoarseness Endo Endocrine: Yes thyroid disease; No diabetes mellitus, thyroid cancer, Hair loss, heat intolerance or cold intolerance Skin Skin: No rash or changing moles Breast Breast: No left breast lump, right breast lump, nipple discharge, breast pain, abnormal mammogram, abnormal US or breast enlargement Musc Musculoskeletal: Yes back problems and arthritis; No rheumatoid arthritis, gout or joint pain Cardio Cardiovascular: Yes heart disease; No murmur, pacemaker, atrial fibrillation, high blood pressure, heart attack, heart stent, palpitations, shortness of breat with exertion or chest pain Psych Psychiatric: No depression, anxiety or hearing voices Resp Respiratory: No shortness of breath, No sleep apnea, No cough, No COPD, No asthma, No emphysema and No wheezing Gastro Gastrointestinal: No abdominal pain, No nausea or vomiting, No diarrhea, No constipation, No blood in stool, No acid reflux, No hemorrhoids, No ulcers, No gallbladder problem and No black,tarry stools Kapil Hematologic: Yes blood thinners, No blood disorders, No bleeding, No anemia and No blood clots Neuro Neurologic: No system reviewed and no additional complaints, except as documented, No as per HPI, No abnormal gait, No abnormal hearing, No abnormal movements, No abnormal speech, No behavioral changes, No burning sensations, No confusion, No convulsions, No disequilibrium, No dizziness, No localized weakness, No frequent falls, No headache(s), No lack of coordination, No loss of vision, No memory loss, No numbness, No other visual disturbances, No radicular pain, No restless legs, No sensory deficit, No syncope, No tingling, No tremor(s), No weakness and No other Assessment and Plan Assessment and Plan (1) Weight loss, unintentional: Status: Acute Plan: Patient is having unintentional weight loss since November. I did offer him an EGD and colonoscopy to evaluate the GI tract. Patient had a CT scan which was normal except for constipation. He has never had a colonoscopy or an EGD. He denies blood in the stool. I explained endoscopy in detail to the patient. I explained the risks including but not limited to stroke or heart attack with anesthesia, perforation of the GI tract, bleeding, infection. I explained that any of these could necessitate further emergency surgery. The patient understands and all questions were answered sufficiently. The patient wishes to proceed with procedure. Tc Judge MD Pager: [facility] [address] [place] [address], [address] [place] [address] Office: I have examined the patient and the H&P has been reviewed. There are no clinical changes since date of exam.
--- NOTE | 2024-07-28 09:31 | POSTOPAN2_ITS ---
Anesthesia Postop Eval I Sum Postop Eval Completion status Anesthesia document: Postop Eval 1 completed: Yes Anesthesia Postop Eval I Summary Anesthesia Postop Eval I Summary: Anesthesia Postop Eval I: Assessment Summary Airway patent Yes 07/28/24 09:31 CELLOPHANE CASTING MACHINE REPAIRER.MDOT Spontaneous unlabored Yes 07/28/24 09:31 CELLOPHANE CASTING MACHINE REPAIRER.OT respirations Mental status Awake,Calm 07/28/24 09:31 CELLOPHANE CASTING MACHINE REPAIRER.MDOT nausea No 07/28/24 09:31 CELLOPHANE CASTING MACHINE REPAIRER.MDOT Vomiting No 07/28/24 09:31 CELLOPHANE CASTING MACHINE REPAIRER.MDOT Anesthesia Postop Eval I: Fluid Summary Crystalloid volume administer 10 07/28/24 09:31 CELLOPHANE CASTING MACHINE REPAIRER.MDOT (ml) Colloids volume administered ( ml) Blood Product volume administered (ml) Total IV fluid infused 10 07/28/24 09:31 CELLOPHANE CASTING MACHINE REPAIRER.OT Anesthesia Postop Eval I: Summary Notes Anesthesia Complication No 07/28/24 09:31 CELLOPHANE CASTING MACHINE REPAIRER.OT Anesthesia Complication Comment: Post-operative progress note Anesthesia: Postop Eval II Evaluation Mental status: Awake and Calm Pain Level: 0 nausea: No Vomiting: No Complications Anesthesia Complication: No
--- NOTE | 2024-07-28 09:31 | PCM.POST.ANE ---
Anesthesia: Postop Eval I Current Vital Signs Temperature: 97 F Pulse Rate: 83 Blood Pressure: 87/54 Respiratory Rate: 16 Pulse Ox: 99 Oxygen Delivery Method: Room Air Assessment Airway patent: Yes Spontaneous unlabored respirations: Yes Mental status: Awake and Calm nausea: No Vomiting: No Anesthesia Complication: No Fluid Hydration Crystalloid volume administer (ml): 10 Total IV fluid infused: 10 Progress Note Anesthesia document: Postop Eval 1 completed: Yes
--- NOTE | 2024-07-28 09:31 | PCM.POSTANE2 ---
Anesthesia Postop Eval I Sum Postop Eval Completion status Anesthesia document: Postop Eval 1 completed: Yes Anesthesia Postop Eval I Summary Anesthesia Postop Eval I Summary: Anesthesia Postop Eval I: Assessment Summary Airway patent Yes 07/28/24 09:31 [email or web address] Spontaneous unlabored Yes 07/28/24 09:31 QUOTATION [email or web address].OT respirations Mental status Awake,Calm 07/28/24 09:31 QUOTATION [email or web address].MDOT nausea No 07/28/24 09:31 QUOTATION [email or web address].MDOT Vomiting No 07/28/24 09:31 QUOTATION [email or web address].MDOT Anesthesia Postop Eval I: Fluid Summary Crystalloid volume administer 10 07/28/24 09:31 QUOTATION CLERK.MDOT (ml) Colloids volume administered ( ml) Blood Product volume administered (ml) Total IV fluid infused 10 07/28/24 09:31 QUOTATION [email or web address].OT Anesthesia Postop Eval I: Summary Notes Anesthesia Complication No 07/28/24 09:31 QUOTATION CLERK.OT Anesthesia Complication Comment: Post-operative progress note Anesthesia: Postop Eval II Evaluation Mental status: Awake and Calm Pain Level: 0 nausea: No Vomiting: No Complications Anesthesia Complication: No
--- NOTE | 2024-07-28 09:33 | OP.EGD_ITS ---
Patient Name: Maykel De Anda Procedure Date: 07/28/2024 9:06 AM Date of : 1955 Age: 69 Procedure: Upper GI endoscopy Indications: Weight loss Providers: Tc Judge MD Referring MD: Young Pérez Medicines: Propofol per Anesthesia Patient Profile: This is a 69 year old male. Refer to note in patient chart for documentation of history and physical. Complications: No immediate complications. Procedure: Pre-Anesthesia Assessment: - Prior to the procedure, a History and Physical was performed, and patient medications and allergies were reviewed. The patient's tolerance of previous anesthesia was also reviewed. The risks and benefits of the procedure and the sedation options and risks were discussed with the patient. All questions were answered, and informed consent was obtained. Prior Anticoagulants: The patient has taken no anticoagulant or antiplatelet agents. After reviewing the risks and benefits, the patient was deemed in satisfactory condition to undergo the procedure. After obtaining informed consent, the endoscope was passed under direct vision. Throughout the procedure, the patient's blood pressure, pulse, and oxygen saturations were monitored continuously. The pediatric colonoscope was introduced through the mouth, and advanced to the second part of duodenum. The upper GI endoscopy was accomplished without difficulty. The patient tolerated the procedure well. Scope In: 9:17:52 AM Scope Out: 9:20:28 AM Total Procedure Duration Time 0 hours 2 minutes 36 seconds Findings: The esophagus was normal. The stomach was normal. The examined duodenum was normal. Impression: - Normal esophagus. - Normal stomach. - Normal examined duodenum. - No specimens collected. Recommendation: - Discharge patient to home. - Resume previous diet. - Continue present medications. Procedure Code(s): --- Professional --- 63214, Esophagogastroduodenoscopy, flexible, transoral; diagnostic, including collection of specimen(s) by brushing or washing, when performed (separate procedure) Diagnosis Code(s): --- Professional --- R63.4, Abnormal weight loss CPT copyright 2021 [employer]. All rights reserved. The codes documented in this report are preliminary and upon bran mixer review may be revised to meet current compliance requirements. Tc Judge MD 07/28/2024 9:33:06 AM This report has been signed electronically. Number of Addenda: 0 Note Initiated On: 07/28/2024 9:06 AM
--- NOTE | 2024-07-28 09:33 | OP.CCLET_ITS ---
07/28/2024 Young Pérez Re : Upper GI endoscopy procedure for Maykel De Anda Dear Lilly This procedure was performed on Sunday, July 28, 2024. My impressions and recommendations are as follows: Impressions : - Normal esophagus. - Normal stomach. - Normal examined duodenum. - No specimens collected. Recommendations : - Discharge patient to home. - Resume previous diet. - Continue present medications. My findings are described in the full procedure note, which is enclosed. If I can be of further assistance, please feel free to contact me at Doctor phone number(s): , Work: . Sincerely, Tc Judge MD 07/28/2024 9:33:06 AM This report has been signed electronically.
--- NOTE | 2024-07-28 09:35 | OP.COLON_ITS ---
Patient Name: Maykel De Anda Procedure Date: 07/28/2024 9:20 AM Date of : 1955 Age: 69 Procedure: Colonoscopy Indications: Weight loss Providers: Tc Judge MD Referring MD: Young Pérez Medicines: Propofol per Anesthesia Patient Profile: This is a 69 year old male. Refer to note in patient chart for documentation of history and physical. Last Colonoscopy: 10 years ago. Complications: No immediate complications. Procedure: Pre-Anesthesia Assessment: - Prior to the procedure, a History and Physical was performed, and patient medications and allergies were reviewed. The patient's tolerance of previous anesthesia was also reviewed. The risks and benefits of the procedure and the sedation options and risks were discussed with the patient. All questions were answered, and informed consent was obtained. Prior Anticoagulants: The patient has taken no anticoagulant or antiplatelet agents. After reviewing the risks and benefits, the patient was deemed in satisfactory condition to undergo the procedure. - Prior to the procedure, a History and Physical was performed, and patient medications and allergies were reviewed. The patient's tolerance of previous anesthesia was also reviewed. The risks and benefits of the procedure and the sedation options and risks were discussed with the patient. All questions were answered, and informed consent was obtained. Prior Anticoagulants: The patient has taken no anticoagulant or antiplatelet agents. After reviewing the risks and benefits, the patient was deemed in satisfactory condition to undergo the procedure. After I obtained informed consent, the scope was passed under direct vision. Throughout the procedure, the patient's blood pressure, pulse, and oxygen saturations were monitored continuously. The pediatric colonoscope was introduced through the anus and advanced to the cecum, identified by appendiceal orifice and ileocecal valve. The colonoscopy was performed without difficulty. The patient tolerated the procedure well. The quality of the bowel preparation was good. The ileocecal valve, appendiceal orifice, and rectum were photographed. Scope In: 9:21:46 AM Scope Withdrawal Time 0 hours 6 minutes 9 seconds Scope Out: 9:31:51 AM Total Procedure Duration Time 0 hours 10 minutes 5 seconds Findings: The entire examined colon appeared normal on direct and retroflexion views. Impression: - The entire examined colon is normal on direct and retroflexion views. - No specimens collected. Recommendation: - Discharge patient to home. - Resume previous diet. - Continue present medications. - Repeat colonoscopy is not recommended due to current age (66 years or older) for screening purposes. Procedure Code(s): --- Professional --- 60826, Colonoscopy, flexible; diagnostic, including collection of specimen(s) by brushing or washing, when performed (separate procedure) Diagnosis Code(s): --- Professional --- R63.4, Abnormal weight loss CPT copyright 2021 [employer]. All rights reserved. The codes documented in this report are preliminary and upon gold marker review may be revised to meet current compliance requirements. Tc Judge MD 07/28/2024 9:34:54 AM This report has been signed electronically. Number of Addenda: 0 Note Initiated On: 07/28/2024 9:20 AM
--- NOTE | 2024-07-28 09:35 | OP.CCLET_ITS ---
07/28/2024 Young Pérez Re : Colonoscopy procedure for Maykel De Anda Dear Lilly This procedure was performed on Sunday, July 28, 2024. My impressions and recommendations are as follows: Impressions : - The entire examined colon is normal on direct and retroflexion views. - No specimens collected. Recommendations : - Discharge patient to home. - Resume previous diet. - Continue present medications. - Repeat colonoscopy is not recommended due to current age (66 years or older) for screening purposes. My findings are described in the full procedure note, which is enclosed. If I can be of further assistance, please feel free to contact me at Doctor phone number(s): , Work: . Sincerely, Tc Judge MD 07/28/2024 9:34:54 AM This report has been signed electronically.
== END 2024-07-28 10:23 | disposition home or self-care (01) ==
PROVIDERS: PCP Physician Assistant; Referring Provider Physician Assistant; Visit Provider Surgery
PROC: 0DJD8ZZ Inspection of Lower Intestinal Tract, Via Natural or Artificial Opening Endoscopic (ICD-10-PCS; CPT 45378; principal; 2024-07-28 09:10)
DX: R63.4 Abnormal weight loss (principal); I10 Essential (primary) hypertension; E78.2 Mixed hyperlipidemia; Z79.899 Other long term (current) drug therapy; R10.9 Unspecified abdominal pain; Z68.24 Body mass index [BMI] 24.0-24.9, adult
CPT/HCPCS: 43235; 45378; A4216

== ENCOUNTER → 2024-08-15 | Outpatient (CLI) | payer MEDICARE, OTHER, SELFPAY ==
[2024-08-15 19:13] LABS: Free T3 2.7 pg/mL (2.18-3.98)
== END | disposition home or self-care (01) ==
LOC: BIMLAB 10:46
PROVIDERS: PCP Physician Assistant; Referring Provider Internal Medicine Endocrinology, Diabetes & Metabolism; Visit Provider Internal Medicine Endocrinology, Diabetes & Metabolism
DX: E05.90 Thyrotoxicosis, unspecified without thyrotoxic crisis or storm (principal)
CPT/HCPCS: 36415; 84439; 84443; 84481

== ENCOUNTER → 2025-02-02 | Outpatient (CLI) | payer MEDICARE, OTHER, SELFPAY ==
[2025-02-02 13:30] LABS: Free T3 2.9 pg/mL (2.18-3.98)
== END | disposition home or self-care (01) ==
LOC: MTLAB 09:37
PROVIDERS: PCP Physician Assistant; Referring Provider Internal Medicine Endocrinology, Diabetes & Metabolism; Visit Provider Internal Medicine Endocrinology, Diabetes & Metabolism
DX: E05.90 Thyrotoxicosis, unspecified without thyrotoxic crisis or storm (principal)
CPT/HCPCS: 36415; 84439; 84443; 84481